=== PATIENT | male | born 1995 | race Caucasian/White ===

== ENCOUNTER 2018-02-17 12:22 | Emergency (ER) | payer OTHER ==
[2018-02-17] MEDS ORDERED: PROPOFOL/EMULSION 1,000 MG/100 ML BOTTLE IV ONE (12:48)
[2018-02-17] MEDS ORDERED: KETAMINE 200 MG/20 ML VIAL ONE (12:51)
--- NOTE | 2018-02-17 12:55 | EDPHY ---
H & P Stated Complaint: Fall from approx 10 feet and deformity lt ankle, and lt wrist pain Time Seen by Provider: 02/17/18 12:32 HPI/ROS: CHIEF COMPLAINT: Left ankle injury HISTORY OF PRESENT ILLNESS: Patient is a 23-year-old man who fell from 10 ft off of a roof. He complains of pain to his left ankle and left wrist. He has obvious deformity to the left ankle likely dislocation. Pulses intact. Warm and sensation intact. No other injuries. He denies head or neck pain. He has chronic low back pain and states that it is not different than usual. Severity: Severe pain Modifying factors: Improved by fentanyl from EMS REVIEW OF SYSTEMS: Constitutional: denies: chills, fever, recent illness, recent injury EENTM: denies: blurred vision, double vision, nose congestion Respiratory: denies: cough, shortness of breath Cardiac: denies: chest pain, irregular heart rate, lightheadedness, palpitations Gastrointestinal/Abdominal: denies: abdominal pain, diarrhea, nausea, vomiting, blood streaked stools Genitourinary: denies: dysuria, frequency, hematuria, pain Musculoskeletal: See HPI Skin: denies: lesions, rash, jaundice, bruising Neurological: denies: headache, numbness, paresthesia, tingling, dizziness, weakness Hematologic/Lymphatic: denies: blood clots, easy bleeding, easy bruising Immunologic/allergic: denies: HIV/AIDS, transplant 10 systems reviewed and negative except as noted EXAM: GENERAL: Well-appearing, well-nourished and in no acute distress. HEAD: Atraumatic, normocephalic. EYES: Pupils equal round and reactive to light, extraocular movements intact, sclera anicteric, conjunctiva are normal. ENT: TMs normal, nares patent, oropharynx clear without exudates. Moist mucous membranes. NECK: Normal range of motion, supple without lymphadenopathy or JVD. LUNGS: Breath sounds clear to auscultation bilaterally and equal. No wheezes rales or rhonchi. HEART: Regular rate and rhythm without murmurs, rubs or gallops. ABDOMEN: Soft, nontender, normoactive bowel sounds. No guarding, no rebound. No masses appreciated. BACK: No CVA tenderness, no spinal tenderness, step-offs or deformities EXTREMITIES: Left ankle with obvious deformity, pulses intact palm a sensation intact. Left wrist with mild pain, no swelling or deformity. Normal strength and range of motion. Normal pulses and capillary refill. NEUROLOGICAL: Cranial nerves II through XII grossly intact. Normal speech, normal gait. 5/5 strength, normal movement in all extremities, normal sensation , normal reflexes PSYCH: Normal mood, normal affect. SKIN: Warm, dry, normal turgor, no visible rashes or lesions. Source: Patient Exam Limitations: No limitations - Personal History Current Tetanus/Diphtheria Vaccine: Yes Current Tetanus Diphtheria and Acellular Pertussis (TDAP): Yes - Medical/Surgical History Hx Asthma: No Hx Chronic Respiratory Disease: No Hx Diabetes: No Hx Cardiac Disease: No Hx Renal Disease: No Hx Cirrhosis: No Hx Alcoholism: No Hx HIV/AIDS: No Hx Splenectomy or Spleen Trauma: No Other PMH: Back pain - Family History Significant Family History: No pertinent family hx - Social History Smoking Status: Never smoked Alcohol Use: Sober Drug Use: None Constitutional: Initial Vital Signs Temperature (C) 37.2 C 02/17/18 12:30 Heart Rate 88 02/17/18 12:30 Respiratory Rate 16 02/17/18 12:30 Blood Pressure 151/78 H 02/17/18 12:30 O2 Sat (%) 96 02/17/18 12:30 O2 Delivery Mode [Post Nasal Cannula Procedure 3rd] O2 Delivery Mode [Post Non-Rebreather Mask Procedure 2nd] O2 Delivery Mode [Post Non-Rebreather Mask Procedure 1st] O2 Delivery Mode [Procedural Humidified Face Tent 3rd] O2 Delivery Mode [Procedural Non-Rebreather Mask 2nd] O2 Delivery Mode [Procedural Non-Rebreather Mask 1st] O2 Delivery Mode [.Immediate Non-Rebreather Mask Pre-Procedure] O2 Delivery Mode Room Air O2 (L/minute) [Post Procedure 2 3rd] O2 (L/minute) [Post Procedure 5 2nd] O2 (L/minute) [Post Procedure 15 1st] O2 (L/minute) [Procedural 3rd] 15 O2 (L/minute) [Procedural 2nd] 15 O2 (L/minute) [Procedural 1st] 15 O2 (L/minute) [.Immediate Pre- 15 Procedure] Allergies/Adverse Reactions: No Known Allergies Allergy (Unverified 02/17/18 12:29) Home Medications: Medication Instructions Recorded Anti-Inflamitory 02/17/18 morphINE IR [morphINE IR 15 mg (*)] 15 mg PO Q3-4PRN PRN #10 tab 02/17/18 Medical Decision Making - Diagnostics Imaging Results: Imaging Impressions Wrist X-Ray 02/17/18 12:34 Impression: Equivocal transverse navicular fracture. If confirmation is important, then consider limited noncontrast CT. 2. Left Ankle, Three Views History: Pain, post trauma. Findings: There is a fracture dislocation of the ankle. The talar dome is laterally and posteriorly dislocated from the distal tibial articular surface. The talar dome is in valgus angulation of approximately 45 degrees. The medial malleolus and distal medial tibial plateau fall and are fractured and laterally displaced, and remain adjacent to the talus. There is a transverse fracture through the distal fibular shaft, approximately 5 cm above the ankle mortise, with lateral angulation of approximately 36 degrees and overlap of approximately 2 cm. The distal fibular shaft is posteriorly displaced by 1 times the width of the fibular shaft. The hindfoot and midfoot appear intact. Impression: Ankle joint fracture/dislocation. Ankle X-Ray 02/17/18 12:35 Impression: Equivocal transverse navicular fracture. If confirmation is important, then consider limited noncontrast CT. 2. Left Ankle, Three Views History: Pain, post trauma. Findings: There is a fracture dislocation of the ankle. The talar dome is laterally and posteriorly dislocated from the distal tibial articular surface. The talar dome is in valgus angulation of approximately 45 degrees. The medial malleolus and distal medial tibial plateau fall and are fractured and laterally displaced, and remain adjacent to the talus. There is a transverse fracture through the distal fibular shaft, approximately 5 cm above the ankle mortise, with lateral angulation of approximately 36 degrees and overlap of approximately 2 cm. The distal fibular shaft is posteriorly displaced by 1 times the width of the fibular shaft. The hindfoot and midfoot appear intact. Impression: Ankle joint fracture/dislocation. Ankle X-Ray 02/17/18 12:56 Impression: Post reduction films demonstrate the distal tibia and fibula in near anatomic alignment with redemonstration of numerous fractures. Imaging: Discussed imaging studies w/ call center dispatcher Radiologist Procedures: Procedure: Procedural sedation. Indication: Ankle fracture/dislocation reduction. A pre-sedation evaluation was completed on the patient just prior to the procedure. Patient is an appropriate candidate for procedural sedation with a normal 3-3-2 rule assessment and a Mallampati airway score of class 1. The risks of the sedation were discussed including but not limited to dysrhythmia, need for airway intervention or general anesthesia, disability, ; and verbal consent obtained. A timeout was observed and patient's identity confirmed. The patient was sedated with ketamine and propofol. The patient was monitored with continuous pulse oximetry, capnography, and surveillance system monitor. There were no complications and no significant hypoxemia. I remained at the bedside for the sedation. The total time I spent in the procedural sedation was 16 minutes. Fracture/dislocation reduction: Patient's left ankle was reduced with traction and reduction and direct pressure. He tolerated the procedure well. Intra procedure x-rays were taken. Procedure: Splint placement. A posterior and stirrup splint was applied. After application of the splint I returned and re-examined the patient. The splint was adequately immobilizing the joint and distal to the splint the patient's circulation and sensation was intact. Procedure: Splint placement. A Velcro wrist splint was applied. After application of the splint I returned and re-examined the patient. The splint was adequately immobilizing the joint and distal to the splint the patient's circulation and sensation was intact. ED Course/Re-evaluation: 1:15 p.m. I discussed the case with Dr. Beltran who is on-call for Orthopedics. He agrees with treatment thus far and recommends follow-up on Tuesday for surgical planning. 3:00 p.m. the patient passed his road test. Will discharge him with follow-up as planned. He feels comfortable with this. Differential Diagnosis: Partial list of the Differential diagnosis considered include but were not limited to; ankle fracture, dislocation, vascular injury, nerve injury, wrist fracture and although unlikely based on the history and physical exam, I also considered head injury, neck injury, intoxication. I discussed these differential diagnoses and the plan with the patient as well as the usual and expected course. The patient understands that the diagnosis is provisional and that in medicine we are not always correct and that further workup is often warranted. Usual and customary warnings were given. All of the patient's questions were answered. The patient was instructed to return to the emergency department should the symptoms at all worsen or return, otherwise to followup with the physician as we discussed. - Data Points Medications Given: Discontinued Medications Ketamine HCl (Ketamine) 60 mg IV EDNOW ONE Stop: 02/17/18 13:01 Last Admin: 02/17/18 13:00 Dose: 60 mg Propofol (Diprivan) 60 mg IVP EDNOW ONE Stop: 02/17/18 13:01 Last Admin: 02/17/18 13:19 Dose: 60 mg Departure - Departure Disposition: Home, Routine, Self-Care Clinical Impression: Fracture of ankle, bimalleolar, left, closed Qualifiers: Encounter type: initial encounter Qualified Code(s): S82.842A - Displaced bimalleolar fracture of left lower leg, initial encounter for closed fracture Left wrist fracture Qualifiers: Encounter type: initial encounter Fracture type: closed Qualified Code(s): S62.102A - Fracture of unspecified carpal bone, left wrist, initial encounter for closed fracture Condition: Fair Instructions: Ankle Fracture (ED), Scaphoid Fracture (ED) Additional Instructions: Follow-up on Tuesday with Dr. Moss to plan surgery. Seguimiento el [place] con el Dr. Moss para planear la cirugia. Referrals: Patient,NotPresent [Unknown] - As per Instructions Byron Moss MD [Medical Doctor] - 5-7 days, call for appt. (Follow-up on Tuesday) Prescriptions: morphINE IR [morphINE IR 15 mg (*)] 15 mg PO Q3-4PRN PRN #10 tab PRN Reason: Pain, Severe Print Language: Kiswahili
[2018-02-17] MEDS ORDERED: PROPOFOL 200 MG/20 ML VIAL IVP ONE (13:00)
[2018-02-17] MEDS ORDERED: KETAMINE 500 MG/10 ML VIAL IV ONE (13:00)
[2018-02-17 15:28] VITALS: BP 141/71
== END 2018-02-17 15:26 | disposition home or self-care (01) ==
DX: S82.842A Displaced bimalleolar fracture of left lower leg, initial encounter for closed fracture (principal); S62.102A Fracture of unspecified carpal bone, left wrist, initial encounter for closed fracture; W13.2XXA Fall from, out of or through roof, initial encounter; Y92.9 Unspecified place or not applicable; Y93.9 Activity, unspecified; Y99.9 Unspecified external cause status
CPT/HCPCS: J2704; L3807